=== PATIENT | male | born 1965 | race Caucasian/White ===

== ENCOUNTER 2017-10-02 11:08 | Emergency (ER) | payer MEDICAID, OTHER ==
[~2017-10-02] VITALS: Ht 182.9 cm; Wt 79.4 kg
--- NOTE | 2017-10-02 11:10 | NUR ---
[id number] FROM STREET: ETOH INTOXICATED. BODY WEAKNESS, HEADACHE S/P GLF. NAD, VSS, RESP EVEN AND UNLABORED, PT WAS PUT ON MONITOR. AT BS.
[2017-10-02] MEDS ORDERED: IV NS 0.9% 1,000 ML BAG IV ONE (11:30)
[2017-10-02 11:49] LABS: BASOPHILS % (AUTO) 0.7 % (0.0-2.0); EOSINOPHILS % (AUTO) 0.2 % (0.0-6.0); HEMATOCRIT 39 % (39-51); HEMOGLOBIN 13.2 g/dL (13.5-17.5); LYMPHOCYTES # (AUTO) 2.1 /CMM (0.8-4.8); LYMPHOCYTES % (AUTO) 30.5 % (20.0-44.0); MEAN CORPUSCULAR HEMOGLOBIN 33 PG (26.0-33.0); MEAN CORPUSCULAR HGB CONC 34 g/dl (31.0-36.0); MEAN CORPUSCULAR VOLUME 98 fL (80-96); MONOCYTES # (AUTO) 0.4 /CMM (0.1-1.30); MONOCYTES % (AUTO) 5.3 % (2.0-12.0); NEUTROPHILS # (AUTO) 4.3 /CMM (1.8-8.9); NEUTROPHILS % (AUTO) 63.3 % (43.0-81.0); PLATELET COUNT (AUTO) 228 /CMM (150-450); RDW COEFFICIENT OF VARIATION 11.6 (11.5-15.0); RED BLOOD CELL COUNT(AUTO) 3.97 MIL/uL (4.5-6.0); WHITE BLOOD COUNT (AUTO) 6.8 K/uL (4.3-11.0)
[2017-10-02 11:58] LABS: CALCIUM, SERUM 8.8 mg/dL (8.5-10.1); CARBON DIOXIDE 31 mmol/L (21-32); CHLORIDE 104 mmol/L (98-107); CREATININE 0.6 mg/dL (0.6-1.3); GLUCOSE 94 mg/dL (74-106); POTASSIUM 3.4 mmol/L (3.5-5.1); SODIUM SERUM 141 mmol/L (136-145); UREA NITROGEN, BLOOD 2 mg/dL (7-18)
[2017-10-02 12:04] LABS: ALANINE AMINOTRANSFERASE 24 U/L (12-78); ALBUMIN 3.2 g/dL (3.4-5.0); ALKALINE PHOSPHATASE 82 U/L (46-116); ASPARTATE AMINOTRANSFERASE 21 U/L (15-37); BILIRUBIN,DIRECT 0.1 mg/dL (0.0-0.2); BILIRUBIN,TOTAL 0.2 mg/dL (0.2-1.0); TOTAL PROTEIN, SERUM 7.8 g/dL (6.4-8.2)
[2017-10-02 12:06] LABS: TROPONIN I < 0.017 ng/mL (0.00-0.056)
[2017-10-02 14:12] VITALS: BP 157/101
--- NOTE | 2017-10-02 14:13 | NUR ---
Patient discharged to home in stable condition. Written and verbal after care instructions given. Patient verbalizes understanding of instruction.IV removed. Catheter intact and site benign. Pressure and 4x4 applied to site. No bleeding noted.
== END 2017-10-02 14:21 | disposition home or self-care (01) ==
LOC: ER 11:16
DX: R53.1 Weakness (principal); R56.9 Unspecified convulsions; F10.10 Alcohol abuse, uncomplicated; I10 Essential (primary) hypertension; Z88.2 Allergy status to sulfonamides; Z88.5 Allergy status to narcotic agent; Y90.9 Presence of alcohol in blood, level not specified
CPT/HCPCS: 36415; 70450-TC; 71045-TC; 72125-TC; 80048-TC; 80076-TC; 84484-TC; 85025-TC; A4606; J7030; Z7610

== ENCOUNTER 2017-10-16 18:21 | Emergency (ER) | payer MEDICAID, OTHER ==
[~2017-10-16] VITALS: Ht 185.4 cm; Wt 70.8 kg
--- NOTE | 2017-10-16 18:32 | NUR ---
AAOX3, BIBRA C/O WITHDRAWAL FROM METHADONE AND GENERALIZED MALAISE. RR IS EVEN AND UNLABORED WITH NAD NOTED. SKIN IS WARM AND DRY. DR HUBER AT BS FOR EVAL.
[2017-10-16 18:55] LABS: BASOPHILS % (AUTO) 0.6 % (0.0-2.0); EOSINOPHILS % (AUTO) 0.6 % (0.0-6.0); HEMATOCRIT 37 % (39-51); HEMOGLOBIN 12.5 g/dL (13.5-17.5); LYMPHOCYTES # (AUTO) 2.1 /CMM (0.8-4.8); LYMPHOCYTES % (AUTO) 45.2 % (20.0-44.0); MEAN CORPUSCULAR HEMOGLOBIN 34 PG (26.0-33.0); MEAN CORPUSCULAR HGB CONC 34 g/dl (31.0-36.0); MEAN CORPUSCULAR VOLUME 99 fL (80-96); MONOCYTES # (AUTO) 0.4 /CMM (0.1-1.30); MONOCYTES % (AUTO) 8.3 % (2.0-12.0); NEUTROPHILS % (AUTO) 45.3 % (43.0-81.0); PLATELET COUNT (AUTO) 295 /CMM (150-450); RED BLOOD CELL COUNT(AUTO) 3.68 MIL/uL (4.5-6.0); WHITE BLOOD COUNT (AUTO) 4.5 K/uL (4.3-11.0)
[2017-10-16] MEDS ORDERED: IV NS 0.9% 1,000 ML IV ONE (19:00)
[2017-10-16 19:09] LABS: CALCIUM, SERUM 8.1 mg/dL (8.5-10.1); CREATININE 0.8 mg/dL (0.6-1.3); POTASSIUM 3.4 mmol/L (3.5-5.1)
--- NOTE | 2017-10-16 19:11 | NUR ---
REPORT GIVEN TO ANASTACIO HENSLEY FOR GLYNN.
[2017-10-16 19:16] LABS: ALBUMIN 3.4 g/dL (3.4-5.0); BILIRUBIN,DIRECT 0.1 mg/dL (0.0-0.2); BILIRUBIN,TOTAL 0.3 mg/dL (0.2-1.0); TOTAL PROTEIN, SERUM 7.1 g/dL (6.4-8.2)
[2017-10-16 19:54] LABS: APPEARANCE,URINE CLEAR (CLEAR); BILIRUBIN,URINE NEGATIVE (NEGATIVE); BLOOD, URINE NEGATIVE Ery/uL (NEGATIVE); COLOR,URINE YELLOW (YELLOW); KETONES,URINE NEGATIVE (NEGATIVE); LEUKOCYTE ESTERASE ,URINE NEGATIVE (NEGATIVE); NITRITE, URINE NEGATIVE (NEGATIVE); PROTEIN,URINE NEGATIVE (NEGATIVE); UGLUCOSE NEGATIVE (NEGATIVE); UROBILINOGEN,URINE 0.2 EU/dL (0.2)
[2017-10-16 21:09] VITALS: BP 129/78
--- NOTE | 2017-10-16 21:10 | NUR ---
ALL D/C INFORMATION GIVEN AND EXPLAINED. PT ABLE TO WALK WITH STEADY GAIT AND UNDERSTOOD ALL INFORMATION
== END 2017-10-16 21:10 | disposition home or self-care (01) ==
LOC: ER 18:28
DX: S00.212A Abrasion of left eyelid and periocular area, initial encounter (principal); R41.82 Altered mental status, unspecified; F10.129 Alcohol abuse with intoxication, unspecified; I10 Essential (primary) hypertension; R56.9 Unspecified convulsions; Y90.8 Blood alcohol level of 240 mg/100 ml or more; Z88.2 Allergy status to sulfonamides; Z88.5 Allergy status to narcotic agent; W50.0XXA Accidental hit or strike by another person, initial encounter; Y93.89 Activity, other specified; Y92.89 Other specified places as the place of occurrence of the external cause; Y99.8 Other external cause status
CPT/HCPCS: 36415; 80048; 80076; 80305; 81001; 85025; 96360; 99284; A4606; G0480; J7030; Z7610; 81000-TC

== ENCOUNTER 2018-08-29 20:03 | Emergency (ER) | payer MEDICAID ==
[~2018-08-29] VITALS: Ht 185.4 cm; Wt 72.6 kg
--- NOTE | 2018-08-29 20:22 | NUR ---
PT BIB RA 39 WITH A C/O GENERALIZED WEAKNESS. PT STATED THAT HE IS HOMELESS AND FELL TWICE, ONCE YESTERDAY AND ONCE TODAY. PT IS C/O NECK, BACK, RT WRIST/HAND PAIN AND PT STATED THAT IT HURTS HIS BACK TO MOVE HIS LEGS. PT IS ALSO C/O NESBITT AND IS PHOTOSENSITIVE. OVERHEAD LIGHTS WERE TURNED OFF AND PT IS ON THE MONITOR AND CONTINUOUS PULSE OX. RESP EVEN AND UNLABORED. PT'S BP IS ELEVATED AND DR. ZHANG WAS NOTIFIED. PT HAS 20G IV IN [facility] SENIOR CLINICAL CONSULTANT. IV IS PATENT AND BENIGN.
[2018-08-29] MEDS ORDERED: LORAZEPAM 0.5 MG TABLET ONE (20:53)
[2018-08-29] MEDS ORDERED: KETOROLAC TROMETHAMINE 15 MG/ML VIAL ONE (20:53)
[2018-08-29] MEDS: IV NS 0.9% 500 ML BAG IV ONE (21:00)
[2018-08-29] MEDS: LORAZEPAM 0.5 MG TABLET PO ONE (21:00)
[2018-08-29] MEDS: KETOROLAC TROMETHAMINE INJ 30 MG/ML VIAL IV ONE (21:02)
--- NOTE | 2018-08-29 21:10 | NUR ---
PT RETURNED FROM CT.
--- NOTE | 2018-08-29 21:54 | NUR ---
PT APPEARS TO BE RESTING COMFORTABLY WITH NO S/S OF PAIN OR DISTRESS.
[2018-08-29 22:25] LABS: HEMATOCRIT 40 % (39-51); HEMOGLOBIN 13.4 g/dL (13.5-17.5); MEAN CORPUSCULAR VOLUME 97 fL (80-96); RED BLOOD CELL COUNT(AUTO) 4.07 MIL/uL (4.5-6.0); WHITE BLOOD COUNT (AUTO) 5.2 K/uL (4.3-11.0)
[2018-08-29 22:26] LABS: BASOPHILS % (AUTO) 0.6 % (0.0-2.0); EOSINOPHILS % (AUTO) 3.4 % (0.0-6.0); LYMPHOCYTES % (AUTO) 39.9 % (20.0-44.0); MEAN CORPUSCULAR HGB CONC 14 g/dl (31.0-36.0); NEUTROPHILS % (AUTO) 47.1 % (43.0-81.0); PLATELET COUNT (AUTO) 211 /CMM (150-450)
[2018-08-29 22:31] LABS: CALCIUM, SERUM 8.2 mg/dL (8.5-10.1); CARBON DIOXIDE 28 mmol/L (21-32); CHLORIDE 101 mmol/L (98-107); GLUCOSE 80 mg/dL (74-106); POTASSIUM 3.1 mmol/L (3.5-5.1); SODIUM SERUM 142 mmol/L (136-145); UREA NITROGEN, BLOOD 8 mg/dL (7-18)
[2018-08-29 22:32] LABS: CREATININE 0.7 mg/dL (0.6-1.3)
[2018-08-29 22:36] LABS: ALANINE AMINOTRANSFERASE 55 U/L (12-78); ALBUMIN 3.6 g/dL (3.4-5.0); ALCOHOL, BLOOD 274 mg/dL (0-0); ALKALINE PHOSPHATASE 71 U/L (46-116); ASPARTATE AMINOTRANSFERASE 83 U/L (15-37); BILIRUBIN,DIRECT 0.1 mg/dL (0.0-0.2); BILIRUBIN,TOTAL 0.5 mg/dL (0.2-1.0); LIPASE 82 U/L (73-393); TOTAL PROTEIN, SERUM 7.6 g/dL (6.4-8.2)
--- NOTE | 2018-08-30 00:10 | NUR ---
PT APPEARS TO BE RESTING COMFORTABLY WITH NO S/S OF PAIN OR DISTRESS.
--- NOTE | 2018-08-30 02:28 | NUR ---
REPORT GIVEN TO ANASTACIO PATEL/CLAUDETTE FOR GLYNN.
--- NOTE | 2018-08-30 04:43 | NUR ---
Patient is resting comfortably in bed with eyes closed. Easily aroused. VSS
--- NOTE | 2018-08-30 06:53 | NUR ---
Patient discharged to home in stable condition. Written and verbal after care instructions given. Patient verbalizes understanding of instruction. Pt ambulatory with a steady gait Addendum: 08/30/18 at 0657 by ADALBERTO iIV removed. Catheter intact and site benign. Pressure and 4x4 applied to site. No bleeding noted.
[2018-08-30 06:57] VITALS: BP 168/84
== END 2018-08-30 06:58 | disposition home or self-care (01) ==
LOC: ER 20:04
DX: S22.32XA Fracture of one rib, left side, initial encounter for closed fracture (principal); S63.8X1A Sprain of other part of right wrist and hand, initial encounter; I10 Essential (primary) hypertension; F10.129 Alcohol abuse with intoxication, unspecified; G89.29 Other chronic pain; Z86.73 Personal history of transient ischemic attack (TIA), and cerebral infarction without residual deficits; Z88.2 Allergy status to sulfonamides; Z88.5 Allergy status to narcotic agent; W18.39XA Other fall on same level, initial encounter; Y93.89 Activity, other specified; Y92.89 Other specified places as the place of occurrence of the external cause; Y99.8 Other external cause status; Y90.9 Presence of alcohol in blood, level not specified
CPT/HCPCS: 36415; 70450; 71045; 72125; 72170; 73120; 80048; 80076; 80307; 83690; 84484; 85025; 96374; 99284; J1885; J7040; G0480

== ENCOUNTER 2019-12-26 13:01 | Inpatient (IN) | payer OTHER ==
[~2019-12-26] VITALS: Ht 182.9 cm; Wt 70.1 kg
[2019-12-26] MEDS ORDERED: IV NS 0.9% 1,000 ML BAG IV ONE (13:30)
[2019-12-26] MEDS ORDERED: LORAZEPAM 1 MG TABLET PO ONE (13:30)
[2019-12-26] MEDS ORDERED: LORAZEPAM 1 MG TABLET ONE (13:32)
--- NOTE | 2019-12-26 13:41 | NUR ---
NEAL 78 FROM [employer] [place] C/O WITNEBG 170SSED SEIZURE EPISODE PER EMS. PT AAOX3, VSS. RR EVEN & UNLABORED. DENIES CP, SOB, DIZZINESS, NESBITT, N/V AT THIS TIME. PT SEEN & EVAL'D BY DR. ADAMS. PLACED ON SENIOR CARE ASSISTANT, ST. MEDICATED PER ERMD ORDER, PT ROQUE WELL.
[2019-12-26 14:04] LABS: BASOPHILS % (AUTO) 0.4 % (0.0-2.0); EOSINOPHILS % (AUTO) 0.3 % (0.0-6.0); HEMATOCRIT 35 % (39-51); HEMOGLOBIN 12.3 g/dL (13.5-17.5); LYMPHOCYTES # (AUTO) 0.8 /CMM (0.8-4.8); LYMPHOCYTES % (AUTO) 20.7 % (20.0-44.0); MEAN CORPUSCULAR HGB CONC 35 g/dl (31.0-36.0); MEAN CORPUSCULAR VOLUME 98 fL (80-96); MONOCYTES # (AUTO) 0.3 /CMM (0.1-1.30); MONOCYTES % (AUTO) 7.1 % (2.0-12.0); NEUTROPHILS # (AUTO) 2.8 /CMM (1.8-8.9); NEUTROPHILS % (AUTO) 71.5 % (43.0-81.0); PLATELET COUNT (AUTO) 71 /CMM (150-450); RED BLOOD CELL COUNT(AUTO) 3.62 MIL/uL (4.5-6.0); WHITE BLOOD COUNT (AUTO) 3.9 K/uL (4.3-11.0)
[2019-12-26 14:21] LABS: CALCIUM, SERUM 8.1 mg/dL (8.5-10.1); CREATININE 1.5 mg/dL (0.6-1.3)
[2019-12-26 14:32] LABS: ALBUMIN 2.9 g/dL (3.4-5.0); BILIRUBIN,DIRECT 1.1 mg/dL (0.0-0.2); BILIRUBIN,TOTAL 2.5 mg/dL (0.2-1.0); TOTAL PROTEIN, SERUM 5.9 g/dL (6.4-8.2)
[2019-12-26 14:35] LABS: LYMPHOCYTES % (MANUAL) 18 % (16-48); MONOCYTES % (MANUAL) 6 % (0-11.0); NEUTROPHILS % (MANUAL) 76 (42-76)
[2019-12-26] MEDS ORDERED: ASPI-1420 PO (14:57)
[2019-12-26] MEDS ORDERED: LEVE500T20 PO (14:57)
[2019-12-26] MEDS ORDERED: METO25TA4 PO (14:58)
[2019-12-26] MEDS ORDERED: GABA600T12 PO (14:58)
[2019-12-26] MEDS ORDERED: AMLO10TA7 PO (14:58)
[2019-12-26] MEDS ORDERED: APIX5TAB PO (14:58)
[2019-12-26] MEDS ORDERED: GUAN2TAB PO (14:58)
[2019-12-26] MEDS ORDERED: HALO5TAB8 PO (14:58)
[2019-12-26] MEDS ORDERED: ATOR80TA PO (14:58)
[2019-12-26] MEDS ORDERED: FOLI0.8T PO (14:58)
[2019-12-26] MEDS ORDERED: LEVETIRACETAM (250 MG) 250 MG TABLET PO ONE ×2 (15:00→16:30)
--- NOTE | 2019-12-26 16:20 | NUR ---
REG CYR GAVE AUTHORIZATION FOR OBS TELE, TRACKING# [id number]
--- NOTE | 2019-12-26 17:09 | NUR ---
COVID TEST DONE & SENT TO LAB.
--- NOTE | 2019-12-26 17:45 | NUR ---
REPORT GIVEN TO ANASTACIO CHUN FOR GLYNN TELE 208.
--- NOTE | 2019-12-26 18:00 | NUR ---
ms rn received a new admission from er,54 year old male,awake,alert,orientedx2-3,came in w/ dx of seizure,no episode at this time, denies pain at this time,all needs attended.
--- NOTE | 2019-12-26 18:53 | NUR ---
ms rn on bed,no distress noted, will endorsed to maintenance technician 3rd shift,for continuity of care.
[2019-12-26] MEDS ORDERED: MAGNESIUM HYDROXIDE 30 ML UDC PO PRN (19:00)
[2019-12-26] MEDS ORDERED: ACETAMINOPHEN 325 MG TABLET PO PRN (19:00)
[2019-12-26] MEDS ORDERED: Z GUARD REMEDY 2 OZ OINT TP PRN (19:00)
[2019-12-26] MEDS ORDERED: ONDANSETRON HCL/PF 4 MG/2 ML VIAL IVP PRN (19:00)
[2019-12-26] MEDS ORDERED: MAG HYDROX/AL HYDROX/SIMETH 30 ML UDC PO PRN (19:00)
[2019-12-26] MEDS ORDERED: LORAZEPAM INJ 2 MG/ML VIAL IV PRN (19:00)
--- NOTE | 2019-12-26 19:36 | NUR ---
RN OPENING NOTES PATIENT RECEIVED RESTING IN BED A/O X 3 AND AMBULATORY. STABLE ON RA WITH BREATHING EVEN AND UNLABORED, NO SOB NOTED. NO SIGNS OF ACUTE DISTRESS. NO COMPLAINTS OF PAIN OR DISCOMFORT AT THE MOMENT. IV LOCATED ON [facility]. ALL BELONGINGS ACCOUNTED FOR. SKIN ASSESSMENT DONE. PATIENT ORIENTED TO ROOM AND STAFF. SAFETY PRECAUTIONS IN PLACE WITH BED IN LOWEST POSITION, CALL LIGHT WITHIN REACH, BREAKS ON, SIDE RAILS UP. WILL CONTINUE TO MONITOR THROUGHOUT THE NIGHT.
[2019-12-26 20:00] VITALS: BP_SYST 117; BP_DIAS 74; BP_DIAS 76
[2019-12-26] MEDS: CHLORDIAZEPOXIDE HCL 25 MG CAPSULE PO SCH (20:00)
[2019-12-26] MEDS: IV NS 0.9% 1,000 ML IV SCH (20:01)
[2019-12-26] MEDS: POTASSIUM CHLORIDE 20 MEQ TAB.PRT.SR PO SCH ×2 (20:01→20:47)
[2019-12-26] MEDS: MAGNESIUM OXIDE 400 MG TABLET PO SCH (21:22)
[2019-12-26] MEDS: LEVETIRACETAM (250 MG) 250 MG TABLET PO SCH (21:22)
[2019-12-26] MEDS: HYDROCODONE/APAP 5/325MG TABLET PO PRN (22:31)
[2019-12-27] VITALS: BP 121/82
[2019-12-27] MEDS: ZOLPIDEM TARTRATE 5 MG TABLET PO PRN (00:53)
[2019-12-27] MEDS: HYDROCODONE/APAP 5/325MG TABLET PO PRN ×2 (03:00→06:40)
--- NOTE | 2019-12-27 03:32 | NUR ---
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 DISCUSSED AND EDUCATED PATIENT THAT HE SHOULD NOT LEAVE AGAINST MEDICAL ADVICE BUT WAS STILL EAGER TO GO. OFFERED TO CALL HIS . ULTIMATELY PATIENT CHANGED MIND AFTER TALKING WITH AND NOT LEAVING AMA. WILL CONTINUE TO MONITOR THROUGHOUT THE NIGHT.
[2019-12-27 04:00] VITALS: BP 148/86
[2019-12-27] MEDS: IV NS 0.9% 1,000 ML IV SCH ×2 (05:39→15:00)
--- NOTE | 2019-12-27 06:21 | NUR ---
RN NOTES IV ACCESS REMOVED. ATTEMPTED TO START IV, ER NURSE TRIED. WILL TRY AGAIN LATER, PATIENT WILL ALLOW TO TRY AGAIN AFTER BREAKFAST. PATIENT HAS HAD GOOD PO INTAKE THROUGHOUT THE NIGHT.
--- NOTE | 2019-12-27 06:56 | NUR ---
RN CLOSING NOTES PATIENT IN BED RESTING A/O X 3, STABLE ON RA WITH BREATHING EVEN AND UNLABORED, NO SOB NOTED. NO SIGNS OF ACUTE DISTRESS. NO COMPLAINTS OF PAIN OR DISCOMFORT AT THE MOMENT. ALL NEEDS ATTENDED TO . SAFETY PRECAUTIONS IN PLACE WITH BED IN LOWEST POSITION, CALL LIGHT WITHIN REACH, BREAKS ON, SIDE RAILS UP. WILL ENDORSE TO ONCOMING SHIFT ABOUT GLYNN.
--- NOTE | 2019-12-27 07:29 | NUR ---
MS/RN OPENING NOTES RECEIVED PATIENT AWAKE, ALERT AND ORIENTED. PATIENT IN NO APPARENT RESPIRATORY DISTRESS NOTED. PATIENT DENIES PAIN AT THIS TIME. PATIENT WITH TELE MONITOR IN PLACED SR 97BPM. PATIENT VERBALIZED "I WANT TO GO HOME". EXPLAINED THE RISK AND BENEFITS. PATIENT AGREED TO WAIT UNTIL THE MD COME. WILL CONTINUE TO MONITOR.
[2019-12-27 07:40] LABS: BASOPHILS % (AUTO) 0.7 % (0.0-2.0); EOSINOPHILS % (AUTO) 1.1 % (0.0-6.0); HEMATOCRIT 32 % (39-51); LYMPHOCYTES # (AUTO) 1.5 /CMM (0.8-4.8); LYMPHOCYTES % (AUTO) 35.9 % (20.0-44.0); MEAN CORPUSCULAR HGB CONC 34 g/dl (31.0-36.0); MEAN CORPUSCULAR VOLUME 98 fL (80-96); MONOCYTES # (AUTO) 0.4 /CMM (0.1-1.30); MONOCYTES % (AUTO) 9.4 % (2.0-12.0); NEUTROPHILS # (AUTO) 2.2 /CMM (1.8-8.9); NEUTROPHILS % (AUTO) 52.9 % (43.0-81.0); PLATELET COUNT (AUTO) 63 /CMM (150-450); WHITE BLOOD COUNT (AUTO) 4.1 K/uL (4.3-11.0)
[2019-12-27] MEDS: PANTOPRAZOLE 40 MG TABLET.DR PO SCH (07:49)
[2019-12-27 07:54] LABS: CALCIUM, SERUM 7.8 mg/dL (8.5-10.1); PHOSPHORUS 2.4 mg/dL (2.5-4.9); POTASSIUM 2.9 mmol/L (3.5-5.1)
[2019-12-27 08:00] VITALS: BP 119/80
[2019-12-27] MEDS: APIXABAN 5 MG TABLET PO SCH ×3 (09:00→17:00)
[2019-12-27] MEDS ORDERED: ASPIRIN EC 81 MG TABLET.DR PO SCH (09:00)
[2019-12-27] MEDS: GUANFACINE HCL 1 MG TABLET PO SCH (09:00)
[2019-12-27] MEDS: CHLORDIAZEPOXIDE HCL 25 MG CAPSULE PO SCH ×3 (10:13→17:00)
[2019-12-27] MEDS: GABAPENTIN 300 MG CAPSULE PO SCH ×4 (10:13→17:00)
[2019-12-27] MEDS: FOLIC ACID 1 MG TABLET PO SCH (10:13)
[2019-12-27] MEDS: THIAMINE HCL 100 MG TABLET PO SCH (10:13)
[2019-12-27] MEDS: HALOPERIDOL 5 MG TABLET PO SCH ×4 (10:15→17:00)
[2019-12-27] MEDS: METOPROLOL SUCCINATE 25 MG TAB.SR.24H PO SCH (10:15)
[2019-12-27] MEDS: MULTIVITAMINS,THERAGRAN 1 UDTAB TABLET PO SCH (10:15)
[2019-12-27] MEDS: LEVETIRACETAM (250 MG) 250 MG TABLET PO SCH ×2 (10:15→21:10)
[2019-12-27] MEDS: AMLODIPINE BESYLATE 10 MG TABLET PO SCH (10:15)
--- NOTE | 2019-12-27 10:33 | NUR ---
MS/RN NOTES PATIENT REMOVED THE TELE MONITOR BOX. EXPLAINED THE RISK AND BENEFITS. MD IS AWARE. WILL CONTINUE TO MONITOR.
[2019-12-27] MEDS: POTASSIUM CHLORIDE 20 MEQ TAB.PRT.SR PO SCH ×4 (11:00→15:14)
[2019-12-27] MEDS: NEUTRA PHOS 1 POWD.PACKET PO ONE ×2 (11:49→12:42)
--- NOTE | 2019-12-27 12:41 | NUR ---
SW met with the patient at patient's door. Patient reports living at [facility] with his . Per patient, wants to return to be with her. Patient reports both him and his are on disability and have been living at [facility] "for a while". Patient states he and also receive [employer] but cannot give approximate monthly income. Patient reports drinking alcohol on occasion, "never a lot". Patient denies drug and cigarette use. Patient reports anxiety and depression diagnosis, reports never seeing a psychiatrist/therapist and never taking medication. Patient did not want resources for outpatient clinics. SW provided a shirt and a pair of shoes as patient requested.
--- NOTE | 2019-12-27 18:00 | NUR ---
MS/RN NOTES PATIENT TRANSFERRED TO [address] REPORT WAS GIVEN TO VENKAT.PATIENT IS LETHARGIC AND ABLE TO OPEN EYES, PATIENT IS UNABLE TO FOLLOW COMMAND PATIENT ORAL MEDICATION AT 1700 WAS WASTED. PATIENT IN NO APPARENT RESPIRATORY DISTRESS NOTED. NO COMPLAINED OF PAIN AT THIS TIME.
[2019-12-27 18:15] VITALS: BP 108/68
--- NOTE | 2019-12-27 18:15 | NUR ---
rn notes patient transferred [place] [facility] [facility] sedated, able to open eyes, but unable to follow direction, per RN Delon held medication 1700, and dinner. patient couple of times removed iv access.v/s taken bp 108/68, p-79, t-97.5, r-17, o2-95room air. call light , and bed alarm on. safety precaution maintained all the time. endorsed oncoming nurse follow plan of care.
--- NOTE | 2019-12-27 19:51 | NUR ---
MS RN NOTES PATIENT IN BED, ASLEEP, ALERT AND ORIENTED X 4. BREATHING EVEN AND UNLABORED ON ROOM AIR. SHOWS NO SIGNS OF ACUTE RESPIRATORY DISTRESS, NO ACUTE PAIN. NO IV ACCESS. SAFETY PRECAUTIONS IN PLACE. BED IN LOWEST POSITION, LOCKED, AND CALL LIGHT KEPT WITHIN REACH. WILL CONTINUE TO MONITOR.
[2019-12-27] MEDS: ATORVASTATIN 40 MG TABLET PO SCH (21:10)
[2019-12-27] MEDS: MAGNESIUM OXIDE 400 MG TABLET PO SCH (21:10)
[2019-12-27 22:00] VITALS: BP 156/72
--- NOTE | 2019-12-27 22:50 | NUR ---
MS RN NOTES PATIENT CONTINUES TO REFUSE IV INSERTION. WILL CONTINUE TO MONITOR.
[2019-12-28] MEDS: IV NS 0.9% 1,000 ML IV SCH (01:00)
[2019-12-28] MEDS: ZOLPIDEM TARTRATE 5 MG TABLET PO PRN (01:55)
--- NOTE | 2019-12-28 01:55 | NUR ---
MS RN NOTES PATIENT COMPLAINING THAT HE IS UNABLE TO SLEEP. GIVEN PRN AMBIEN. WILL CONTINUE TO MONITOR.
[2019-12-28] MEDS: HYDROCODONE/APAP 5/325MG TABLET PO PRN ×4 (02:33→20:03)
--- NOTE | 2019-12-28 02:33 | NUR ---
MS RN NOTES PATIENT COMPLAINING OF PAIN 09/11. GIVEN PRN NORCO AT 0233. WILL CONTINUE TO MONITOR.
[2019-12-28 02:43] VITALS: BP 156/72
--- NOTE | 2019-12-28 06:41 | NUR ---
MS RN NOTES PATIENT IN BED, AWAKE, ALERT AND ORIENTED X 4. BREATHING EVEN AND UNLABORED ON ROOM AIR. SHOWS NO SIGNS OF ACUTE RESPIRATORY DISTRESS, NO ACUTE PAIN. NO IV ACCESS, PT CONTINUES TO REFUSE. ALL DUE MEDICATIONS GIVEN. SAFETY PRECAUTIONS IN PLACE. BED IN LOWEST POSITION, LOCKED, AND CALL LIGHT KEPT WITHIN REACH. WILL ENDORSE TO ONCOMING NURSE
[2019-12-28 07:31] LABS: BASOPHILS % (AUTO) 0.2 % (0.0-2.0); EOSINOPHILS % (AUTO) 0.1 % (0.0-6.0); HEMATOCRIT 32 % (39-51); HEMOGLOBIN 10.8 g/dL (13.5-17.5); LYMPHOCYTES # (AUTO) 0.9 /CMM (0.8-4.8); LYMPHOCYTES % (AUTO) 10.8 % (20.0-44.0); MEAN CORPUSCULAR HGB CONC 34 g/dl (31.0-36.0); MEAN CORPUSCULAR VOLUME 101 fL (80-96); MONOCYTES # (AUTO) 0.4 /CMM (0.1-1.30); MONOCYTES % (AUTO) 4.9 % (2.0-12.0); NEUTROPHILS # (AUTO) 7.1 /CMM (1.8-8.9); PLATELET COUNT (AUTO) 69 /CMM (150-450); RED BLOOD CELL COUNT(AUTO) 3.18 MIL/uL (4.5-6.0); WHITE BLOOD COUNT (AUTO) 8.4 K/uL (4.3-11.0)
--- NOTE | 2019-12-28 07:40 | NUR ---
MS RN OPENING NOTES PATIENT IS A/O X 4. WITH NO SIGNS OF DISTRESS IN ROOM AIR. NO IV INTACT PER ROOFING SUBCONTRACTOR NURSE PATIENT REFUSED IV AFTER PULLING IT OUT. NO COMPLAINS OF PAIN AT THIS TIME. SAFETY MEASURES ARE APPLIED, BED IS LOCKED AND LOW POSITION, SIDE RAILS UP X 2 FOR SAFETY. CALL LIGHT WITHIN REACH WILL CONTINUE TO MONITOR.
[2019-12-28 07:54] LABS: MAGNESIUM 1.7 mg/dL (1.8-2.4); PHOSPHORUS 3.9 mg/dL (2.5-4.9); POTASSIUM 3.8 mmol/L (3.5-5.1)
[2019-12-28 08:00] VITALS: BP 119/70
[2019-12-28] MEDS: APIXABAN 5 MG TABLET PO SCH ×2 (09:00→16:09)
[2019-12-28] MEDS: GUANFACINE HCL 1 MG TABLET PO SCH (09:00)
[2019-12-28] MEDS: HALOPERIDOL 5 MG TABLET PO SCH ×4 (09:00→16:09)
[2019-12-28] MEDS: THIAMINE HCL 100 MG TABLET PO SCH (09:10)
[2019-12-28] MEDS: MULTIVITAMINS,THERAGRAN 1 UDTAB TABLET PO SCH (09:11)
[2019-12-28] MEDS: GABAPENTIN 300 MG CAPSULE PO SCH ×3 (09:11→16:18)
[2019-12-28] MEDS: FOLIC ACID 1 MG TABLET PO SCH (09:11)
[2019-12-28] MEDS: PANTOPRAZOLE 40 MG TABLET.DR PO SCH (09:11)
[2019-12-28] MEDS: LEVETIRACETAM (250 MG) 250 MG TABLET PO SCH ×2 (09:11→20:07)
[2019-12-28] MEDS: CHLORDIAZEPOXIDE HCL 25 MG CAPSULE PO SCH ×2 (09:12→16:18)
[2019-12-28] MEDS: METOPROLOL SUCCINATE 25 MG TAB.SR.24H PO SCH (09:14)
[2019-12-28] MEDS: AMLODIPINE BESYLATE 10 MG TABLET PO SCH (09:14)
[2019-12-28 10:13] LABS: CALCIUM, SERUM 8.5 mg/dL (8.5-10.1)
[2019-12-28 16:00] VITALS: BP 107/63
[2019-12-28 20:00] VITALS: BP 112/71
--- NOTE | 2019-12-28 20:00 | NUR ---
RN NOTES PM SHIFT RECEIVED PATIENT IN BED, ALERT AND ORIENTED X4, STABLE ON ROOM AIR, COMPLAINING OF PAIN TO BILATERAL SHOULDER, NORCO 5/325 1 TAB FOR PAIN MANAGEMENT, NO DISTRESS, KEPT SAFE, CALL LIGHT WITHIN REACH, WILL CONTINUE TO MONITOR.
[2019-12-28] MEDS: MAGNESIUM OXIDE 400 MG TABLET PO SCH (21:03)
[2019-12-28] MEDS: ATORVASTATIN 40 MG TABLET PO SCH (21:03)
[2019-12-29] VITALS: BP 119/79
[2019-12-29] MEDS: HYDROCODONE/APAP 5/325MG TABLET PO PRN ×3 (01:03→09:21)
--- NOTE | 2019-12-29 06:10 | NUR ---
RN NOTES PM SHIFT Alert and oriented x4, room air, constant pain of shoulders and legs, [place] 5/325 1 tab with moderate relief, low platelet on Eliquis, sodium 134, seizure on keppra, monitor sodium, hx of alcohol abuse, no s/s of withdrawal, VS stable, independent of ADLs, continue pain management and supportive care
--- NOTE | 2019-12-29 07:10 | NUR ---
MS RN OPENING NOTE RECEIVED PT AWAKE IN BED AT THIS TIME. AOX4. NO SOB NOTED, NO S/ S OF ANY ACUTE DISTRESS NOTED. NO C/O PAIN AT THIS TIME. PT ABLE TO MAKE NEEDS KNOWN. RESPIRATIONS ARE EVEN AND UNLABORED. NO IV ACCESS NOTED. PER ELENOR, MONOMER PURIFICATION OPERATOR NURSE PT DOES NOT WANT AN IV ACCESS AND MD WAS MADE AWARE. FALL AND SAFETY PRECAUTION IN PLACE AND MAINTAINED AT ALL TIMES. BED IN LOWEST LOCKED POSITION, HOB ELEVATED, SIDE RAILS UP X 2, CALL LIGHT WITHIN REACH. WILL CONTINUE TO MONITOR
[2019-12-29 07:36] LABS: CALCIUM, SERUM 8.7 mg/dL (8.5-10.1); CREATININE 0.8 mg/dL (0.6-1.3); POTASSIUM 3.8 mmol/L (3.5-5.1)
[2019-12-29 08:00] VITALS: BP 140/95
[2019-12-29] MEDS: PANTOPRAZOLE 40 MG TABLET.DR PO SCH (08:36)
[2019-12-29] MEDS ORDERED: GUANFACINE HCL 1 MG TABLET PO SCH (09:13)
[2019-12-29] MEDS: HALOPERIDOL 5 MG TABLET PO SCH ×2 (09:20→12:52)
[2019-12-29] MEDS: GABAPENTIN 300 MG CAPSULE PO SCH ×2 (09:20→12:51)
[2019-12-29] MEDS: LEVETIRACETAM (250 MG) 250 MG TABLET PO SCH (09:20)
[2019-12-29] MEDS: CHLORDIAZEPOXIDE HCL 25 MG CAPSULE PO SCH (09:21)
[2019-12-29] MEDS: THIAMINE HCL 100 MG TABLET PO SCH (09:21)
[2019-12-29 09:22] VITALS: BP 140/95
[2019-12-29] MEDS: AMLODIPINE BESYLATE 10 MG TABLET PO SCH (09:22)
[2019-12-29] MEDS: METOPROLOL SUCCINATE 25 MG TAB.SR.24H PO SCH (09:22)
[2019-12-29] MEDS: MULTIVITAMINS,THERAGRAN 1 UDTAB TABLET PO SCH (09:23)
[2019-12-29] MEDS: FOLIC ACID 1 MG TABLET PO SCH (09:23)
--- NOTE | 2019-12-29 09:25 | NUR ---
PT C/O OF LEFT/RIGHT SHOULDER ACHING PAIN OF 7/10. PT NOTED GRASPING AND GRIMACING. VS WNL. PER PT REQUEST, NORCO 5-325MG PO Q4HR PRN ADMINISTERED AT THIS TIME. WILL CONTINUE TO MONITOR
[2019-12-29] MEDS ORDERED: LORA-259 PO (11:43)
--- NOTE | 2019-12-29 14:45 | NUR ---
ACUTE CARE NURSE PRACTITIONER NOTES PT DISCHARGED AT THIS TIME. PT IN MEDICALLY STABLE POSITION. ALL CARE, NEEDS, TREATMENT AND MEDICATIONS ADMINISTERED ANTICIPATED PER ORDER. PT DISCHARGE INSTRUCTIONS PROVIDED AND PT VERBALIZED UNDERSTANDING. BELONGINGS ACCOUNTED FOR, AND FILED IN CHART. PT ACCOMPANIED TO LOBBY BY REJI ALVAREZ
== END 2019-12-29 14:45 | disposition home or self-care (01) | DRG 53 ==
LOC: ER 13:04 → TELE2 16:29 → TELE 12-27 18:21 → MED 12-27 18:25
PROVIDERS: ADMIT Internal Medicine; ATTEND Internal Medicine
DX: G40.909 Epilepsy, unspecified, not intractable, without status epilepticus (principal); N17.0 Acute kidney failure with tubular necrosis; E43 Unspecified severe protein-calorie malnutrition; E83.39 Other disorders of phosphorus metabolism; D63.8 Anemia in other chronic diseases classified elsewhere; E87.1 Hypo-osmolality and hyponatremia; F41.9 Anxiety disorder, unspecified; I10 Essential (primary) hypertension; Z79.01 Long term (current) use of anticoagulants; Z86.73 Personal history of transient ischemic attack (TIA), and cerebral infarction without residual deficits; E86.1 Hypovolemia; E87.6 Hypokalemia; F32.9 Major depressive disorder, single episode, unspecified; E88.09 Other disorders of plasma-protein metabolism, not elsewhere classified; R74.0 Nonspecific elevation of levels of transaminase and lactic acid dehydrogenase [LDH]; K70.10 Alcoholic hepatitis without ascites; Z68.21 Body mass index [BMI] 21.0-21.9, adult; F10.188 Alcohol abuse with other alcohol-induced disorder; Y90.9 Presence of alcohol in blood, level not specified
CPT/HCPCS: 36415; 70450-TC; 80048-TC; 80076-TC; 83735-TC; 84100-TC; 85025-TC; 87081-TC; G0378; J7030; U0003-CS

== ENCOUNTER 2020-01-29 19:14 | Emergency (ER) | payer OTHER ==
[~2020-01-29] VITALS: Ht 182.9 cm; Wt 72.6 kg
[~2020-01-29 19:14] MED LIST: AMLO10TA7 PO; ATOR80TA PO; FOLI0.8T PO; GABA600T12 PO; GUAN2TAB PO; HALO5TAB8 PO; LEVE500T20 PO; LORA-259 PO; METO25TA4 PO
--- NOTE | 2020-01-29 19:18 | NUR ---
PT AAOX4. BIBEMS C/O "SLEEPY, NOT FEELING GOOD". PT ADMITS TO DRINKING ALL DAY TODAY. PT PLACED IN BED 11 ON MONITOR AND PULSE OX. VSS. NO ACUTE DISTRESS NOTED. AWAITING RECONCILING CLERK FOR EVAL AND ORDERS.
[2020-01-29] MEDS ORDERED: IV NS 0.9% 1,000 ML BAG IV ONE (20:00)
[2020-01-29] MEDS ORDERED: THIAMINE HCL 100 MG TABLET PO ONE (20:00)
[2020-01-29] MEDS ORDERED: ONDANSETRON HCL/PF 4 MG/2 ML VIAL IVP ONE (20:00)
[2020-01-29] MEDS ORDERED: FOLIC ACID 1 MG TABLET PO ONE (20:00)
[2020-01-29 20:28] LABS: EOSINOPHILS % (AUTO) 1.7 % (0.0-6.0); HEMATOCRIT 41 % (39-51); HEMOGLOBIN 13.7 g/dL (13.5-17.5); LYMPHOCYTES # (AUTO) 5.9 /CMM (0.8-4.8); LYMPHOCYTES % (AUTO) 74.9 % (20.0-44.0); MEAN CORPUSCULAR HGB CONC 34 g/dl (31.0-36.0); MEAN CORPUSCULAR VOLUME 105 fL (80-96); MONOCYTES # (AUTO) 0.9 /CMM (0.1-1.30); MONOCYTES % (AUTO) 11.7 % (2.0-12.0); NEUTROPHILS # (AUTO) 0.9 /CMM (1.8-8.9); NEUTROPHILS % (AUTO) 11.7 % (43.0-81.0); PLATELET COUNT (AUTO) 93 /CMM (150-450); WHITE BLOOD COUNT (AUTO) 7.8 K/uL (4.3-11.0)
[2020-01-29] MEDS ORDERED: ONDANSETRON HCL/PF 4 MG/2 ML VIAL ONE (20:34)
[2020-01-29] MEDS ORDERED: THIAMINE HCL 100 MG TABLET ONE (20:34)
[2020-01-29] MEDS ORDERED: FOLIC ACID 1 MG TABLET ONE (20:34)
[2020-01-29 20:55] LABS: EOSINOPHILS % (MANUAL) 1 % (0-4); LYMPHOCYTES % (MANUAL) 40 % (16-48); MONOCYTES % (MANUAL) 6 % (0-11.0); NEUTROPHILS % (MANUAL) 53 (42-76)
--- NOTE | 2020-01-29 20:57 | NUR ---
Patient is resting comfortably in bed with eyes closed. Easily aroused. VSS
[2020-01-29 21:08] LABS: CALCIUM, SERUM 8.6 mg/dL (8.5-10.1); CREATININE 0.8 mg/dL (0.6-1.3); POTASSIUM 4.1 mmol/L (3.5-5.1)
[2020-01-29] MEDS ORDERED: LORAZEPAM 1 MG TABLET ONE (22:05)
[2020-01-29 22:11] LABS: ALBUMIN 2.4 g/dL (3.4-5.0); BILIRUBIN,DIRECT 1.1 mg/dL (0.0-0.2); BILIRUBIN,TOTAL 1.6 mg/dL (0.2-1.0)
[2020-01-29] MEDS ORDERED: LORAZEPAM 1 MG TABLET PO ONE (22:30)
--- NOTE | 2020-01-29 22:47 | NUR ---
IV removed. Catheter intact and site benign. Pressure and 4x4 applied to site. No bleeding noted.
--- NOTE | 2020-01-29 22:47 | NUR ---
Patient discharged to home in stable condition. Written and verbal after care instructions given. Patient verbalizes understanding of instruction. Pt ambulated with steady gait. vss.
[2020-01-29 22:48] VITALS: BP 122/75
== END 2020-01-29 22:49 | disposition home or self-care (01) ==
LOC: ER 19:15
DX: R53.1 Weakness (principal); F10.129 Alcohol abuse with intoxication, unspecified; D68.9 Coagulation defect, unspecified; D69.6 Thrombocytopenia, unspecified; I10 Essential (primary) hypertension; G89.29 Other chronic pain; M54.9 Dorsalgia, unspecified; Z86.73 Personal history of transient ischemic attack (TIA), and cerebral infarction without residual deficits; Z88.2 Allergy status to sulfonamides; Z88.5 Allergy status to narcotic agent; Z79.899 Other long term (current) drug therapy; Y90.9 Presence of alcohol in blood, level not specified
CPT/HCPCS: 36415; 71045; 80048; 80076; 82140; 83690; 85007; 85025; 85730; 96361; 96374; 99284; J2405; J7030

== ENCOUNTER 2020-02-04 10:44 | Emergency (ER) | payer OTHER ==
[~2020-02-04] VITALS: Ht 182.9 cm; Wt 70.3 kg
--- NOTE | 2020-02-04 10:44 | NUR ---
PT BIB RA 909 FROM [facility] C/O ALCOHOL WITHDRAWAL. PT IS AAOX4, NOT IN RESPIRATORY DISTRESS, HOOKED TO PHOTOGRAMMETRIC STEREO COMPILER, KEPT RESTED AND COMFORTABLE. WILL CONTINUE TO MONITOR.
--- NOTE | 2020-02-04 11:02 | NUR ---
urine specimen collected and sent to lab
--- NOTE | 2020-02-04 11:08 | NUR ---
ER PHLEB AT BEDSIDE FOR BLOOD DRAW.
[2020-02-04 11:15] LABS: APPEARANCE,URINE Clear (CLEAR); BILIRUBIN,URINE LARGE (NEGATIVE); BLOOD, URINE Negative Ery/uL (NEGATIVE); COLOR,URINE Dark (YELLOW); KETONES,URINE Negative (NEGATIVE); LEUKOCYTE ESTERASE ,URINE Negative (NEGATIVE); NITRITE, URINE Negative (NEGATIVE); PROTEIN,URINE Negative (NEGATIVE); UGLUCOSE Negative (NEGATIVE)
[2020-02-04] MEDS ORDERED: LORAZEPAM 1 MG TABLET ONE (11:15)
[2020-02-04 11:23] LABS: BASOPHILS # (AUTO) 0.1 /CMM (0.0-0.2); BASOPHILS % (AUTO) 0.9 % (0.0-2.0); EOSINOPHILS % (AUTO) 0.3 % (0.0-6.0); HEMATOCRIT 35 % (39-51); HEMOGLOBIN 11.9 g/dL (13.5-17.5); LYMPHOCYTES # (AUTO) 2.7 /CMM (0.8-4.8); MEAN CORPUSCULAR HGB CONC 34 g/dl (31.0-36.0); MEAN CORPUSCULAR VOLUME 102 fL (80-96); MONOCYTES # (AUTO) 0.4 /CMM (0.1-1.30); MONOCYTES % (AUTO) 6.6 % (2.0-12.0); NEUTROPHILS # (AUTO) 2.7 /CMM (1.8-8.9); NEUTROPHILS % (AUTO) 46.2 % (43.0-81.0); PLATELET COUNT (AUTO) 177 /CMM (150-450); RED BLOOD CELL COUNT(AUTO) 3.42 MIL/uL (4.5-6.0); WHITE BLOOD COUNT (AUTO) 5.9 K/uL (4.3-11.0)
[2020-02-04 11:30] LABS: CALCIUM, SERUM 8.2 mg/dL (8.5-10.1); CARBON DIOXIDE 29 mmol/L (21-32); CHLORIDE 98 mmol/L (98-107); CREATININE 0.9 mg/dL (0.6-1.3); GLUCOSE 126 mg/dL (74-106); SODIUM SERUM 136 mmol/L (136-145); UREA NITROGEN, BLOOD 7 mg/dL (7-18)
[2020-02-04] MEDS ORDERED: LORAZEPAM 1 MG TABLET PO ONE (11:30)
[2020-02-04 11:37] LABS: ACETAMINOPHEN 0 ug/ml (10-30); ALANINE AMINOTRANSFERASE 287 U/L (12-78); ALCOHOL, BLOOD 307 mg/dL (0-0); ALKALINE PHOSPHATASE 172 U/L (46-116); ASPARTATE AMINOTRANSFERASE 331 U/L (15-37); BILIRUBIN,DIRECT 3.3 mg/dL (0.0-0.2); BILIRUBIN,TOTAL 4.2 mg/dL (0.2-1.0); TOTAL PROTEIN, SERUM 7.3 g/dL (6.4-8.2)
--- NOTE | 2020-02-04 11:47 | NUR ---
TO CT ON GIORGI
[2020-02-04 11:50] LABS: BACTERIA,URINE Few /HPF (None Seen); RBC,URINE 0-2 /HPF (0-2); SQUAMOUS EPITHELIAL CELL,UR Few /HPF (None Seen); WBC,URINE 0-2 /HPF (0-3)
[2020-02-04 12:27] VITALS: BP 115/70
--- NOTE | 2020-02-04 12:32 | NUR ---
Patient discharged to home in stable condition. Written and verbal after care instructions given. Patient verbalizes understanding of instruction.Pt ambulatory with a steady gait. Pt signed homeless waiver, provided with food and tap card.
== END 2020-02-04 12:27 | disposition home or self-care (01) ==
LOC: ER 10:49
DX: S00.81XA Abrasion of other part of head, initial encounter (principal); F10.10 Alcohol abuse, uncomplicated; I10 Essential (primary) hypertension; G89.29 Other chronic pain; M54.9 Dorsalgia, unspecified; Z86.73 Personal history of transient ischemic attack (TIA), and cerebral infarction without residual deficits; Z88.2 Allergy status to sulfonamides; Z88.5 Allergy status to narcotic agent; Z79.899 Other long term (current) drug therapy; X58.XXXA Exposure to other specified factors, initial encounter; Y93.89 Activity, other specified; Y92.89 Other specified places as the place of occurrence of the external cause; Y99.8 Other external cause status; Y90.8 Blood alcohol level of 240 mg/100 ml or more
CPT/HCPCS: 36415; 70450-TC; 80048-TC; 80076-TC; 81000-TC; 85025-TC; G0480

== ENCOUNTER 2020-02-05 00:28 | Emergency (ER) | payer OTHER ==
[~2020-02-05] VITALS: Ht 182.9 cm; Wt 69.9 kg
[2020-02-05 00:28] VITALS: BP 114/86
--- NOTE | 2020-02-05 01:58 | NUR ---
PT AAOX4. AMBULATORY WITH STEADY GAIT. MEDICALLY CLEARED FOR DISCHARGE PER MD. Patient discharged to home in stable condition. Written and verbal after care instructions given. Patient verbalizes understanding of instruction.
== END 2020-02-05 01:58 | disposition home or self-care (01) ==
LOC: ER 00:30
DX: F10.10 Alcohol abuse, uncomplicated (principal); R53.1 Weakness; I10 Essential (primary) hypertension; G89.29 Other chronic pain; M54.9 Dorsalgia, unspecified; Y90.9 Presence of alcohol in blood, level not specified; Z86.73 Personal history of transient ischemic attack (TIA), and cerebral infarction without residual deficits; Z88.2 Allergy status to sulfonamides; Z88.5 Allergy status to narcotic agent; Z79.899 Other long term (current) drug therapy

== ENCOUNTER 2023-10-25 00:58 | Emergency (ER) | payer OTHER ==
[~2023-10-25] VITALS: Ht 167.6 cm; Wt 70.8 kg
[~2023-10-25 00:58] MED LIST changes: +AMLO-213 PO; -AMLO10TA7 PO; -FOLI0.8T PO; +FOLI0.8T3 PO
[2023-10-25 01:34] LABS: BASOPHILS % (AUTO) 0.4 % (0.0-2.0); EOSINOPHILS # (AUTO) 0.1 K/uL (0.0-0.7); EOSINOPHILS % (AUTO) 2.6 % (0.0-6.0); HEMATOCRIT 36 % (39-51); HEMOGLOBIN 12.2 g/dL (13.5-17.5); LYMPHOCYTES # (AUTO) 2.2 K/uL (0.8-4.8); LYMPHOCYTES % (AUTO) 55.8 % (20.0-44.0); MEAN CORPUSCULAR HEMOGLOBIN 33 PG (26.0-33.0); MEAN CORPUSCULAR HGB CONC 34 g/dl (31.0-36.0); MEAN CORPUSCULAR VOLUME 97 fL (80-96); MONOCYTES # (AUTO) 0.3 K/uL (0.1-1.30); MONOCYTES % (AUTO) 7.8 % (2.0-12.0); NEUTROPHILS # (AUTO) 1.3 K/uL (1.8-8.9); NEUTROPHILS % (AUTO) 33.4 % (43.0-81.0); RED BLOOD CELL COUNT(AUTO) 3.68 MIL/uL (4.5-6.0); RED CELL DISTRIBUTION WIDTH 17.1 % (11.5-15.0)
[2023-10-25 01:38] LABS: PLATELET COUNT (AUTO) 41 K/uL (150-450)
[2023-10-25 01:41] LABS: CREATININE 0.7 mg/dL (0.6-1.3); POTASSIUM 3.3 mmol/L (3.5-5.1)
[2023-10-25 01:48] LABS: ALBUMIN 2.9 g/dL (3.4-5.0); BILIRUBIN,TOTAL 1.1 mg/dL (0.2-1.0); TOTAL PROTEIN, SERUM 6.8 g/dL (6.4-8.2)
[2023-10-25] MEDS ORDERED: POTASSIUM CHLORIDE 20 MEQ TAB.PRT.SR PO ONE (01:58)
[2023-10-25] MEDS: POTASSIUM CHLORIDE 20 MEQ TAB.PRT.SR PO ONE (02:00)
[2023-10-25] MEDS: IV NS 0.9% 1,000 ML IV ONE (02:00)
[2023-10-25 03:14] LABS: BASOPHILS % (MANUAL) 0 % (0.0-2.0); EOSINOPHILS % (MANUAL) 2 % (0-4); LYMPHOCYTES % (MANUAL) 49 % (16-48); MONOCYTES % (MANUAL) 8 % (0-11.0); NEUTROPHILS % (MANUAL) 41 (42-76); PLATELET ESTIMATE DECREASED
[2023-10-25 03:14] LABS: APPEARANCE,URINE CLEAR (CLEAR); BILIRUBIN,URINE NEGATIVE (NEGATIVE); BLOOD, URINE NEGATIVE Ery/uL (NEGATIVE); COLOR,URINE YELLOW (YELLOW); KETONES,URINE NEGATIVE (NEGATIVE); LEUKOCYTE ESTERASE ,URINE NEGATIVE (NEGATIVE); NITRITE, URINE NEGATIVE (NEGATIVE); PROTEIN,URINE NEGATIVE (NEGATIVE); UGLUCOSE NEGATIVE (NEGATIVE)
[2023-10-25 03:20] VITALS: BP 135/88; TEMP 98.6; O2SAT 98
[2023-10-25 03:20] LABS: AMPHETAMINE, URINE NEGATIVE (NEGATIVE); BARBITURATE, URINE NEGATIVE (NEGATIVE); BENZODIAZEPINE, URINE NEGATIVE (NEGATIVE); CANNABINOID, URINE NEGATIVE (NEGATIVE); COCCAINE, URINE NEGATIVE (NEGATIVE); OPIATE, URINE NEGATIVE (NEGATIVE); PHENCYCLIDINE SCREEN,URINE NEGATIVE (NEGATIVE)
[2023-10-25] MEDS ORDERED: IV NS 0.9% 1,000 ML IV ONE (06:30)
== END 2023-10-25 06:08 | disposition home or self-care (01) ==
LOC: ER 00:59
DX: F10.129 Alcohol abuse with intoxication, unspecified (principal); R56.9 Unspecified convulsions; I10 Essential (primary) hypertension; G89.29 Other chronic pain; M54.9 Dorsalgia, unspecified; F19.10 Other psychoactive substance abuse, uncomplicated; Z86.73 Personal history of transient ischemic attack (TIA), and cerebral infarction without residual deficits; Z88.2 Allergy status to sulfonamides; Z88.8 Allergy status to other drugs, medicaments and biological substances; Y90.8 Blood alcohol level of 240 mg/100 ml or more
CPT/HCPCS: 99283; 96360; 85025; 83690; 85007; 81003; 36415; 80053; 80320; 80307; J7030; G0480